=== PATIENT | female | born 1975 | race Caucasian/White ===

== ENCOUNTER 2019-10-06 02:52 | Emergency (ER) | payer SELFPAY ==
[~2019-10-06] VITALS: Ht 152.4 cm; Wt 98.5 kg
[2019-10-06 02:56] VITALS: BP 157/93
--- NOTE | 2019-10-06 03:25 | NUR ---
INITIAL CONTACT WITH PT. ASSESSMENT DONE. PT HAS BEEN SEEN BY PA. ORDERS PENDING.
[2019-10-06] MEDS ORDERED: METHOCARBAMOL 750 MG TABLET PO ONE (03:30)
[2019-10-06] MEDS ORDERED: METHOCARBAMOL 750 MG TABLET ONE (03:31)
--- NOTE | 2019-10-06 05:19 | NUR ---
PT DC'D HOME WITH RX X 1 AND UNDERSTANDING OF INSTRUCTIONS. PT AND FAMILY MEMBER TO DC DESK, PT ABLE TO AMBULATE WITHOUT DIFFICULTY.
== END 2019-10-06 05:21 | disposition home or self-care (01) ==
LOC: ED 03:30
DX: S30.0XXA Contusion of lower back and pelvis, initial encounter (principal); M25.551 Pain in right hip; M24.551 Contracture, right hip; Z90.49 Acquired absence of other specified parts of digestive tract; Z98.890 Other specified postprocedural states; W01.0XXA Fall on same level from slipping, tripping and stumbling without subsequent striking against object, initial encounter; Y93.89 Activity, other specified; Y92.410 Unspecified street and highway as the place of occurrence of the external cause; Y99.8 Other external cause status
CPT/HCPCS: 72110; 99283